=== PATIENT | female | born 1965 | race African-American/Black ===

== ENCOUNTER 2023-05-18 13:51 | Emergency (ER) | payer OTHER ==
[2023-05-18 14:26] VITALS: RESP 18; TEMP 98.1; BMI 56.1
[2023-05-18 16:07] LABS: EOS % 0.6 % (0-4.5); HEMATOCRIT 37.2 % (32.4-45.2); HEMOGLOBIN 12.4 GM/dL (10.7-15.3); MCH 33.5 pg (25.7-33.7); MCHC 33.2 g/dl (32.0-36.0); MEAN CELL VOLUME 100.9 fl (80-96); MEAN PLT VOLUME 7.5 fl (7.5-11.1); MONO % 6.3 % (3.8-10.2); NEUT % 60.1 % (42.8-82.8); PLATELET COUNT 199 10^3/uL (134-434); RBC 3.69 M/mm3 (3.60-5.2); WHITE BLOOD COUNT 7.5 K/mm3 (4.0-10.0)
[2023-05-18 16:27] LABS: INR 1.17 (0.83-1.09); PROTHROMBIN TIME (PATIENT) 13.5 SEC (9.7-13.0)
[2023-05-18 16:29] LABS: ACTIVATED PTT 28.2 SECONDS (25.2-36.5)
[2023-05-18 16:30] LABS: CHLORIDE 106 mmol/L (98-107); POTASSIUM 4.2 mmol/L (3.5-5.1); SODIUM 139 mmol/L (136-145)
[2023-05-18 16:33] LABS: ALBUMIN 3.1 g/dl (3.4-5.0); ANION GAP 7 mmol/L (4-13); BLOOD UREA NITROGEN 19.5 mg/dL (7-18); CO2 26 mmol/L (21-32); GLUCOSE,RANDOM 102 mg/dL (74-106); MAGNESIUM 2.4 mg/dL (1.8-2.4)
[2023-05-18 16:36] LABS: CREATININE 0.8 mg/dL (0.55-1.3); SGOT/AST 28 U/L (15-37); SGPT/ALT 37 U/L (13-61)
[2023-05-18 16:37] LABS: TOT PROT 7.8 g/dl (6.4-8.2)
[2023-05-18 16:38] LABS: BILIRUBIN,TOTAL 0.6 mg/dL (0.2-1)
[2023-05-18 16:39] LABS: ALK PHOS 141 U/L (45-117)
[2023-05-18 17:09] LABS: ERYTHROCYTE SEDIMENTATION RATE 55 mm/hr (0-30)
[2023-05-18] MEDS: ACETAMINOPHEN 1000 MG/100 ML BAG IVPB ONE (21:23)
[2023-05-18] MEDS ORDERED: ACETAMINOPHEN INJECTION 100 ML IVPB ONE (21:26)
[2023-05-18] MEDS ORDERED: oxyCODONE HCL 5 MG TABLET ONE (21:39)
[2023-05-18] MEDS: oxyCODONE HCL 5 MG TABLET PO ONE (21:39)
[2023-05-19] MEDS ORDERED: KETOROLAC TROMETHAMINE 30 MG/1 ML VIAL ONE (01:42)
[2023-05-19] MEDS: KETOROLAC TROMETHAMINE 30 MG/1 ML VIAL IVPUSH ONE (01:47)
[2023-05-19] MEDS ORDERED: CEFAZOLIN SODIUM 2 GM VIAL ONE (02:12)
[2023-05-19] MEDS: CEFAZOLIN SODIUM 2 GM VIAL IVPB ONE (02:24)
[2023-05-19] MEDS: morphine CARPU-JECT 2 MG/1 ML DISP.SYRIN IVPUSH ONE (05:14)
[2023-05-19 08:46] VITALS: BP 147/70; PULSE 99
== END 2023-05-19 08:46 | disposition short-term general hospital (02) ==
LOC: JER 13:51
PROC: 3E033NZ Introduction of Analgesics, Hypnotics, Sedatives into Peripheral Vein, Percutaneous Approach (ICD-10-PCS; principal; 2023-05-18)
PROC: 3E0333Z Introduction of Anti-inflammatory into Peripheral Vein, Percutaneous Approach (ICD-10-PCS; 2023-05-19)
PROC: 3E03329 Introduction of Other Anti-infective into Peripheral Vein, Percutaneous Approach (ICD-10-PCS; 2023-05-19)
PROC: 3E033GC Introduction of Other Therapeutic Substance into Peripheral Vein, Percutaneous Approach (ICD-10-PCS; 2023-05-19)
DX: L03.116 Cellulitis of left lower limb (principal); M79.662 Pain in left lower leg; M79.89 Other specified soft tissue disorders; R20.2 Paresthesia of skin
CPT/HCPCS: 36415; 73590-TC-LT-FY; 73610-TC-LT-FY; 73630-TC-LT; 75635-TC; 80053; 83735; 85025; 85610; 85651; 85730; 86140; 87040; 93005; 93010; 93971-TC; 99285-25; J0131; Q9967

== ENCOUNTER 2023-12-16 11:53 | Emergency (ER) | payer OTHER ==
[2023-12-16 12:46] VITALS: BP 161/86; PULSE 82; RESP 20; TEMP 97.5; BMI 54.3
[2023-12-16] MEDS ORDERED: ACETAMINOPHEN INJECTION 100 ML ONE (13:04)
[2023-12-16] MEDS ORDERED: LIDOCAINE 4% PATCH TP ONE (13:04)
[2023-12-16] MEDS: LIDOCAINE 4% PATCH TP ONE (13:19)
[2023-12-16] MEDS ORDERED: ACETAMINOPHEN 500 MG TABLET (FP) ONE (15:36)
[2023-12-16] MEDS: ACETAMINOPHEN 500 MG TABLET (FP) PO ONE (15:57)
[2023-12-16] MEDS: ACETAMINOPHEN 1000 MG/100 ML BAG IVPB ONE (15:58)
[2023-12-16] MEDS ORDERED: oxyCODONE HCL 5 MG TABLET ONE (15:59)
[2023-12-16] MEDS: oxyCODONE HCL 5 MG TABLET PO ONE (16:02)
[2023-12-16] MEDS ORDERED: LIDOCAINE PATCH REMOVAL MC SCH (22:00)
== END 2023-12-16 16:50 | disposition home or self-care (01) ==
LOC: JER 11:53
DX: M79.605 Pain in left leg (principal); G89.29 Other chronic pain; M79.89 Other specified soft tissue disorders
CPT/HCPCS: 93970-TC; 99284-25